=== PATIENT | male | born 1955 | race Two or more races ===

== ENCOUNTER 2018-06-17 09:00 | Inpatient (IN) | payer OTHER ==
[~2018-06-17] VITALS: Ht 182.9 cm; Wt 90.7 kg
[2018-06-26] MEDS ORDERED: INTEGRA PLUS C1 EACH PO (09:09)
[2018-06-26] MEDS ORDERED: OXYC1TAB9 PO (09:09)
[2018-06-26] MEDS ORDERED: XARELTO10 MG PO (09:09)
== END 2018-06-26 11:16 | DRG 470 ==
LOC: RECOVERY 06-23 09:00 → SURG 06-23 09:50 → O/R 06-23 09:50 → RECOVERY 06-23 10:30 → SURG 06-23 19:30
PROVIDERS: Orthopaedic Surgery Sports Medicine
PROC: 0SR90JZ Replacement of Right Hip Joint with Synthetic Substitute, Open Approach (ICD-10-PCS; principal; 2018-06-23 10:30)
DX: M16.11 Unilateral primary osteoarthritis, right hip (principal)